=== PATIENT | female | born 1970 | race Caucasian/White ===

== ENCOUNTER 2021-08-29 09:07 | Emergency (ER) | payer OTHER, SELFPAY ==
[2021-08-29] MEDS ORDERED: Boostrix 0.5 ML (Tdap) VIAL ONE (09:57)
[2021-08-29] MEDS ORDERED: Lidocaine 1% (PF) 30 ML VIAL ONE (10:10)
[2021-08-29] MEDS ORDERED: Bacitracin 1 PK ONE (10:23)
== END 2021-08-29 10:30 | disposition home or self-care (01) ==
LOC: MADERS 09:07
DX: S61.212A Laceration without foreign body of right middle finger without damage to nail, initial encounter (principal); W23.0XXA Caught, crushed, jammed, or pinched between moving objects, initial encounter; Z23 Encounter for immunization
CPT/HCPCS: 12001; 90471; 90715; J2001

== ENCOUNTER 2024-10-25 12:38 | Emergency (ER) | payer OTHER ==
[~2024-10-25 12:38] MED LIST: Iopamidol 370 76% 100 ML VIAL ONE
[2024-10-25] MEDS ORDERED: Meclizine HCl 25 MG TAB ONE ×2 (13:03→13:08)
[2024-10-25] MEDS ORDERED: Dexamethasone 10 MG/ML VIAL ONE (13:03)
[2024-10-25 13:15] LABS: #Basophils 0.1 thou/uL (0.0-0.2); #Eosinophils 0.2 thou/uL (0.0-0.7); #Monocytes 0.7 thou/uL (0.11-0.59); #Neutrophils 7.2 thou/uL (1.40-6.50); %Basophils 0.8 % (0.0-1.0); %Eosinophils 2.3 % (0.0-10.0); %Lymphocytes 19.8 % (21.0-51.0); %Monocytes 6.6 % (0.0-10.0); %Neutrophils 70.5 % (42.0-75.0); Hematocrit 41.8 % (36.0-47.0); Hemoglobin 13.2 g/dL (12.0-16.0); Mean Corpuscular HGB CONC 31.7 g/dL (32.0-36.0); Mean Corpuscular Hemoglobin 28.7 pg (27.0-31.0); Mean Corpuscular Volume 90.7 fl (78.0-98.0); Platelet Count 336 10x3/uL (130-400); Red Blood Cell (RBC) Count 4.61 mill/uL (4.20-5.40); White Blood Cell (WBC) Count 10.3 10x3/uL (4.8-10.8)
[2024-10-25 13:25] LABS: INR-International Normal Ratio 0.9; Prothrombin Time 12.5 sec (12.0-14.7)
[2024-10-25 13:30] LABS: PTT 22.5 sec (22.9-36.1)
[2024-10-25 13:37] LABS: Troponin I Less than 0.010 ng/mL (< 0.028)
[2024-10-25 13:38] LABS: ALT (SGPT) 31 U/L (Less than 34); AST (SGOT) 29 U/L (11-34); Albumin 3.9 g/dL (3.1-4.5); Alkaline Phosphatase 59 U/L (40-110); Anion Gap 16 mmol/L (10-20); BUN (Urea Nitrogen) 16 mg/dL (9.8-20.1); Bilirubin, Total 0.3 mg/dL (0.3-1.2); Calc. Creatinine Clearance 0 mL/min (70-130); Calcium 8.7 mg/dL (7.8-10.44); Carbon Dioxide 17 mmol/L (22-29); Chloride 111 mmol/L (98-107); Estimated GFR 94; Globulin 3.6 g/dL (2.4-3.5); Glucose 89 mg/dL (70-105); Lipase 18 U/L (8-78); Potassium 4.1 mmol/L (3.5-5.1); Protein, Total 7.5 g/dL (6.0-8.3); Sodium 140 mmol/L (136-145)
[2024-10-25] MEDS ORDERED: Sodium Chloride 0.9% 1,000 ML ONE (14:44)
[2024-10-25] MEDS ORDERED: Aspirin 325 MG TAB ONE (15:35)
== END 2024-10-25 20:39 | disposition short-term general hospital (02) ==
LOC: MADERS 12:38
DX: R55 Syncope and collapse (principal); R42 Dizziness and giddiness; R29.700 NIHSS score 0; K21.9 Gastro-esophageal reflux disease without esophagitis; Z79.899 Other long term (current) drug therapy
CPT/HCPCS: 0042T; 36415; 36416; 70450; 70498; 80053; 83605; 83690; 83880; 84443; 84484; 85025; 85610; 85730; 93005; 96361; 96374; J1100; J7030; Q9967